=== PATIENT | female | born 1965 | race Caucasian/White ===

== ENCOUNTER 2017-04-23 11:41 | Day surgery (SDC) | payer BC ==
[~2017-04-23] VITALS: Ht 175.3 cm; Wt 78.3 kg
[2017-04-23] VITALS (11 sets, daily range): BP systolic 99–118; BP diastolic 53–74; PULSE 61–97; RESP 11–18; Ht 175.3 cm; Wt 78.3 kg
--- NOTE | 2017-04-23 12:55 | PREOPHP ---
DATE OF ADMISSION: 04/23/2017 HISTORY OF PRESENT ILLNESS: This is a 51-year-old lady, 3, para 3. Her last normal menstru al period was a few months prior to admission. She was admitted for D and C, hysteroscopy, possible suction curettage. This patient is very heavy with her period, associated with blood clots for man y months. She had an ultrasound done and the ultrasound showed endometrial thickening. She had end ometrial biopsy done and endometrial biopsy showed benign proliferative endometrium, but cannot rule out endometrial hyperplasia. So she was admitted for the above procedure. The procedures were exp lained to her, D and C, hysteroscopy and possible suction curettage. The procedures were explained to her and she understood everything totally. The risks, benefit and alternative was discussed with her as well. PAST PERSONAL HISTORY: No history of diabetes, TB, asthma. ALLERGIES: NO ALLERGIES. SOCIAL HISTORY: Patient does not smoke. She does not drink. MEDICATIONS: She does not take any drugs. GYNECOLOGICAL HISTORY: Had menarche at the age of 14, every 28 days interval, 3 to 4 days duration, and moderate in amount. FAMILY HISTORY: Noncontributory. PAST SURGICAL HISTORY: She had a tubal ligation. She had breast implants and she had a cyst remove d on the right ovary. She had a D and C hysteroscopy 2014. FAMILY HISTORY: Father had cancer, heart disease, diabetes and hypertension. REVIEW OF SYSTEMS: CARDIOVASCULAR: No chest pains. RESPIRATORY: No cough. GASTROINTESTINAL: No diarrhea. No vomiting. GENITOURINARY: No dysuria. PHYSICAL EXAMINATION: GENERAL: Reveals a conscious coherent lady, not in acute distress. VITAL SIGNS: Her blood pressure 120/80, pulse rate 80 per minute, respirations 16 per minute. BREASTS, HEART AND LUNGS: Within normal limits. ABDOMEN: Soft. No organomegaly. PELVIC: Revealed the cervix to be firm, uterus of normal size, and adnexa were negative for masses. RECTAL: Confirmed the pelvic findings. EXTREMITIES: No pedal edema. ADMITTING DIAGNOSIS: Menorrhagia, rule out endometrial hyperplasia. The patient was planned to hav e the above procedure. Again, the patient and her were well-informed about the plans. The plans were explained to the patient and she understood everything totally. The risks, benefits, and alternatives were discussed as well. Dictated By: EMMANUELLE TREJO/RYAN Conf#: [id number] DID#: [id number]
[2017-04-23] MEDS ORDERED: MIDAZOLAM 1 MG/ML 2 ML INJ ONE (15:10)
[2017-04-23] MEDS ORDERED: PROPOFOL 20 ML ONE (15:10)
[2017-04-23] MEDS ORDERED: FENTAnyl 50 MCG/ML VIAL ONE (15:10)
[2017-04-23] MEDS ORDERED: KETOROLAC 30 MG INJ ONE (15:12)
[2017-04-23] MEDS ORDERED: ONDANSETRON 4 MG INJ ONE (15:12)
[2017-04-23] MEDS ORDERED: DEXAMETHASONE 4 MG/ML 1 ML INJ ONE (15:12)
[2017-04-23] MEDS ORDERED: METOCLOPRAMIDE 10 MG INJ ONE (15:12)
[2017-04-23] MEDS ORDERED: MEPERIDINE 25 MG INJ IV PRN (15:30)
[2017-04-23] MEDS ORDERED: LABETALOL HCL 20MG INJ IV PRN (15:30)
[2017-04-23] MEDS ORDERED: DIPHENHYDRAMINE 50 MG INJ IV PRN ×2 (15:30)
[2017-04-23] MEDS ORDERED: ONDANSETRON 4 MG INJ IV PRN (15:30)
[2017-04-23] MEDS ORDERED: METOCLOPRAMIDE 10 MG INJ IV PRN (15:30)
[2017-04-23] MEDS ORDERED: EPHEDrine SULFATE 50 MG/5 ML SYG IV PRN (15:30)
[2017-04-23] MEDS ORDERED: HYDROmorphONE (0.2 MG/ML) 10ML SYG IV PRN ×3 (15:30)
[2017-04-23] MEDS ORDERED: OXYCODONE/ACETAMINOPHEN (5/325) TAB PO PRN ×2 (15:30)
[2017-04-23] MEDS ORDERED: morphine (1 MG/ML) 10ML SYRINGE IV PRN ×3 (15:30)
--- NOTE | 2017-04-25 03:48 | OPR ---
DATE OF OPERATION: 04/23/2017 PREOPERATIVE DIAGNOSES: 1. Menorrhagia. 2. Endometrial thickening. POSTOPERATIVE DIAGNOSES: 1. Menorrhagia. 2. Endometrial thickening. 3. Pending pathology report. SURGEON: Francine August MD [employer] REPAIRER: Jaden calderon. ANESTHESIA: General. OPERATION PERFORMED: Fractional dilatation and curettage, hysteroscopy, and suction curettage. OPERATIVE TECHNIQUE: Under general anesthesia, the patient was prepped and draped in the usual [facility] for vaginal surgery. Pelvic exam under anesthesia revealed the cervix to be firm, uterus of nor mal size, and adnexa were negative for masses. Then, the heavy weight vaginal retractor was put in place, and the anterior lip of the cervix was grasped with an Allis clamp. Endocervical dilatation up to Hegar 6 was proceeded. Uterus was sounded to about 3 inches. Then, the hysteroscope was inse rted inside the uterine cavity and connected with the light source. The uterus was distended with n ormal saline. There were no polyps nor fibroids seen. Then endocervical curettage was performed. A small amount of tissue was obtained. Endometrial curettage was performed, and a good amount of ti ssue was obtained. Suction tip size 7 was inserted inside the uterine cavity, and suction curettage was done. A good amount of tissue was obtained. The uterus was intact during and after the proced ure. The patient tolerated the procedure well. Estimated blood loss was minimal. Vital signs were stable during and after the procedure. Dictated By: FRANCINE TREJO/NTS Conf#: [id number] DID#: [id number]
== END 2017-04-23 17:59 | disposition home or self-care (01) ==
LOC: SDS 11:41
PROVIDERS: ATTEND Obstetrics & Gynecology
DX: N92.0 Excessive and frequent menstruation with regular cycle (principal)
CPT/HCPCS: 58558; 84702; 84703; 86850; 86900; 86901; 88305; J1100; J1885; J2250; J2405; J2765; J3010; Z7512; Z7610

== ENCOUNTER 2017-10-21 09:16 | Day surgery (SDC) | payer BC ==
[~2017-10-21] VITALS: Ht 175.3 cm; Wt 76.9 kg
[2017-10-21 09:53] VITALS: Ht 175.3 cm; Wt 76.9 kg
[2017-10-21 10:07] VITALS: BP 120/59; PULSE 59; RESP 18
--- NOTE | 2017-10-21 10:38 | OPPN ---
Date/Time of Note Date/Time of Note DATE: 10/21/17 TIME: 10:37 Proc Note GI Procedure Date 10/21/17 Indication: screening/surveillance Pre-procedure Diagnosis Colon cancer screening Post-procedure Diagnosis Melanosis coli Internal hemorrhoids Procedure Performed: Colonoscopy Surgeon see signature line Chief Service Dispatcher none Anesthesia Type: moderate sedation Tourniquet Time none EBL none Transfusion required none Biopsy 1: None Grafts/Implants none Tubes/Drains none Complication(s) none Disposition: PACU Procedure Description Report dictated SHANNON FLOERS MD Oct 21, 2017 10:38
[2017-10-21 10:58] VITALS: BP 116/67; PULSE 64; RESP 12
--- NOTE | 2017-10-21 13:39 | GILP ---
DATE OF PROCEDURE: PROCEDURE: Colonoscopy. INDICATION: The patient is a 52-year-old female undergoing this procedure for colon cancer screenin g. The risks of the procedure, related and unrelated complications, anesthetic risks, sedative risk s, alternatives discussed and informed consent was obtained. DESCRIPTION OF PROCEDURE: The patient was brought to the GI lab, sedated with Versed 3 mg, fentanyl 75 mg. After optimal sedation, scope was passed with much ease into the rectum, advanced slowly th rough sigmoid, descending, transverse colon all the way into the cecum. Appendiceal orifice and IC valve identified. Colon was thoroughly inspected while coming out. The patient had melanosis coli which was identified throughout the colon. Rest of the colon appeared normal. Retroversion done, i nternal hemorrhoids identified. Scope was straightened out and removed with good patient tolerance. IMPRESSION 1. Melanosis coli. 2. Internal hemorrhoids. 3. Clarity and cleanliness was good. 4. Negative all the way into cecum. PLAN: At this point, is to stay on high fiber diet and avoid any kind of laxative tea. Discussed w ith the patient. She understood and has agreed. Dictated By: SHANNON WATSON/RYAN Conf#: [id number] DID#: [id number]
[2017-10-21] MEDS ORDERED: FENTAnyl 50 MCG/ML VIAL ONE (18:05)
[2017-10-21] MEDS ORDERED: MIDAZOLAM 1 MG/ML 2 ML INJ ONE ×2 (18:05)
== END 2017-10-21 15:49 | disposition home or self-care (01) ==
LOC: GIL 09:16
PROVIDERS: ATTEND Internal Medicine Gastroenterology
DX: Z12.11 Encounter for screening for malignant neoplasm of colon (principal); K63.89 Other specified diseases of intestine; K64.4 Residual hemorrhoidal skin tags
CPT/HCPCS: 45378; 84703; J2250; J3010; Z7610